=== PATIENT | male | born 2000 | race Caucasian/White ===

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

== ENCOUNTER 2019-01-03 11:10 | Day surgery (SDC) | payer OTHER ==
[~2019-01-03] VITALS: Ht 193 cm; Wt 74.8 kg
[~2019-01-03 11:10] MED LIST: AUGM875T28 PO; MAGICMW SSP; PRED20TA PO
[2019-01-03] MEDS ORDERED: ceFAZolin 1GM INJ (J0690 PER 500MG) As Ordered ONE (12:01)
[2019-01-03] MEDS ORDERED: LR 1,000 ML IV ONE (12:30)
[2019-01-03] MEDS ORDERED: ceFAZolin SOD 1 GM in D5W MINI-BAG PLUS 50 ML IV ONE (12:30)
[2019-01-03] MEDS ORDERED: LIDOCAINE 1% SDV INJ 30 ML VIAL As Ordered ONE (12:42)
[2019-01-03] MEDS ORDERED: fentaNYL 100 MCG/2 ML INJECTION (J3010) As Ordered ONE (13:39)
[2019-01-03] MEDS ORDERED: LIDOCAINE 2% INJ 100 MG/5 ML SDV (FOR ANES.) As Ordered ONE (13:39)
[2019-01-03] MEDS ORDERED: PROPOFOL 200 MG/20 ML VIAL As Ordered ONE (13:39)
[2019-01-03] MEDS ORDERED: MIDAZOLAM INJ 2 MG/2 ML VIAL (J2250) As Ordered ONE (13:39)
[2019-01-03] MEDS ORDERED: ONDANSETRON 4MG/2ML VIAL (J2405) As Ordered ONE (13:39)
[2019-01-03] MEDS ORDERED: LR 1,000 ML IV SCH (14:30)
[2019-01-03] MEDS ORDERED: ONDANSETRON 4MG/2ML VIAL (J2405) IV PRN (14:30)
[2019-01-03 14:45] VITALS: BP 123/74
--- NOTE | 2019-01-03 14:50 | RO ---
DATE OF OPERATION: 01/03/2019 PREOPERATIVE DIAGNOSIS: Unexplained syncope. POSTOPERATIVE DIAGNOSIS: Unexplained syncope. FINDINGS: Unexplained syncope. PROCEDURE PERFORMED: Implantation of a [employer]onic implantable loop recorder. SURGEON: Iglesia Cruz MD OPTICAL GLASS SAWYER: None. ANESTHESIA: Lidocaine 1% local (2 mL), monitored anesthetic care. SPECIMENS: None. ESTIMATED BLOOD LOSS: Less than 1 mL. BLOOD PRODUCTS REPLACED: None. DRAINS: None. COMPLICATIONS: None. DESCRIPTION OF PROCEDURE: The patient was prepped and draped over the sternum and left anterior chest. Lidocaine 1% was used for local anesthetic. An incision approximately 1 cm in length was made at roughly the left 4th interspace 1 inch lateral to the left parasternal border. This was made with a #15 blade. Next, the guide on the insertion tool was placed into the incision and advanced parallel to the ribcage in the subcuticular tissue in a caudal direction. The insertion tool was then rotated 180 degrees. The punch was then placed into the insertion tool and used to advance the loop recorder into the subcutaneous tissue. The punch was then removed, and then the insertion tool was removed leaving the loop recorder behind. The initial R wave amplitude was 0.70 mV. Next, a single 2-0 Vicryl stitch was used to approximate the deep layer of the incision. Next, I used a 4-0 Biosyn suture placed subcuticular with the free ends of the suture protruding from the skin 1 cm on either side. This was used to approximate the incision temporarily while the glue was allowed to set. Next, three layers of Dermabond were applied over the incision. The Biosyn suture was then snipped and removed entirely from the incision line by pulling it through. The patient tolerated the procedure well without any immediate complications. The implantable loop recorder implanted was a [employer] Reveal LINC, model LNQ11 with serial number [id number].
== END 2019-01-03 14:54 | disposition home or self-care (01) ==
LOC: M SDC 11:10
PROVIDERS: ATTEND Internal Medicine Cardiovascular Disease
DX: R55 Syncope and collapse (principal); F17.290 Nicotine dependence, other tobacco product, uncomplicated
CPT/HCPCS: 33285; C1764; J0690; J2250; J2405; J3010

== ENCOUNTER 2019-01-13 09:15 | Day surgery (SDC) | payer OTHER ==
[~2019-01-13] VITALS: Ht 193 cm; Wt 79.4 kg
[2019-01-13] MEDS ORDERED: LR 1,000 ML IV ONE (09:30)
[2019-01-13] MEDS ORDERED: dexameTHASONE 4 MG/ML 1ML VIAL (J1100) IV ONE (10:00)
[2019-01-13] MEDS ORDERED: LIDOCAINE 2% INJ 100 MG/5 ML SDV (FOR ANES.) As Ordered ONE (10:51)
[2019-01-13] MEDS ORDERED: PROPOFOL 200 MG/20 ML VIAL As Ordered ONE (10:51)
[2019-01-13] MEDS ORDERED: dexameTHASONE 4 MG/ML 1ML VIAL (J1100) As Ordered ONE (10:52)
[2019-01-13] MEDS ORDERED: SUCCINYLCHOLINE 100 MG/5 ML SYRINGE (J0330) As Ordered ONE (10:52)
[2019-01-13] MEDS ORDERED: ONDANSETRON 4MG/2ML VIAL (J2405) As Ordered ONE (10:52)
[2019-01-13] MEDS ORDERED: MIDAZOLAM INJ 2 MG/2 ML VIAL (J2250) As Ordered ONE (10:52)
[2019-01-13] MEDS ORDERED: ROCURONIUM BROMIDE 50 MG/5 ML VIAL As Ordered ONE (10:52)
[2019-01-13] MEDS ORDERED: fentaNYL 100 MCG/2 ML INJECTION (J3010) As Ordered ONE ×2 (10:53→13:07)
[2019-01-13] MEDS ORDERED: ESMOLOL INJ 100MG/10ML VIAL As Ordered ONE (12:22)
[2019-01-13] MEDS: fentaNYL 100 MCG/2 ML INJECTION (J3010) IV PRN ×4 (13:10→13:25)
[2019-01-13] MEDS ORDERED: MEPERIDINE INJ 25 MG/ML VIAL (J2175) IV PRN (13:15)
[2019-01-13] MEDS ORDERED: ONDANSETRON 4MG/2ML VIAL (J2405) IV PRN (13:15)
[2019-01-13] MEDS ORDERED: METOCLOPRAMIDE INJ 10MG/2ML VIAL (J2765) IV PRN (13:15)
[2019-01-13] MEDS ORDERED: PERCOCET 5MG/325MG TAB PO PRN (13:15)
[2019-01-13] MEDS ORDERED: LR 1,000 ML IV SCH ×2 (13:15)
[2019-01-13 13:53] VITALS: BP 128/80
== END 2019-01-13 15:08 | disposition home or self-care (01) ==
LOC: M SDC 09:15
PROVIDERS: ATTEND Otolaryngology
DX: J35.01 Chronic tonsillitis (principal); F17.290 Nicotine dependence, other tobacco product, uncomplicated
CPT/HCPCS: 42826; 88302; J0330; J1100; J2250; J2405; J3010

== ENCOUNTER 2019-01-20 16:17 | Emergency (ER) | payer OTHER ==
[~2019-01-20] VITALS: Ht 193 cm; Wt 80.0 kg
[2019-01-20 16:52] LABS: BASO % 0.4 % (0.0-1.0); EOS # 0.1 10^3/uL (0.0-0.5); EOS % 0.6 % (0.0-3.0); HEMATOCRIT 47.7 % (42.0-52.0); HEMOGLOBIN 16.2 g/dl (13.5-17.5); LYMPH # 1.9 10^3/uL (1.5-5.0); LYMPH % 22.3 % (24.0-44.0); MEAN CORPUSCULAR VOLUME 85.3 fl (80.0-96.0); MONO # 0.8 10^3/uL (0.0-0.8); NEUTROPHILS # 5.6 10^3/uL (1.5-8.5); NEUTROPHILS % 66.3 % (36.0-66.0); PLATELET COUNT, AUTOMATED 284 10^3/uL (150-450); RED BLOOD COUNT 5.59 10^6/uL (4.30-6.10); WHITE BLOOD COUNT 8.4 10^3/uL (4.0-10.0)
--- NOTE | 2019-01-20 17:04 | REP ---
Clinical: Chest pain . Comparison: None . Findings: The mediastinum and cardiac silhouette are stable and within normal limits for portable technique. The lung hernandez are clear without acute consolidation, effusion, or pneumothorax. Skeletal structures are intact. Impression: No acute cardiopulmonary process appreciated. Electronically Signed by Marcus Pro MD 01/20/2019 04:56 P
[2019-01-20 17:23] LABS: BLOOD UREA NITROGEN 12 MG/DL (7-18); CALCIUM LEVEL 9.3 MG/DL (8.5-10.1); CARBON DIOXIDE LEVEL 27 MEQ/L (21-32); CHLORIDE LEVEL 107 MEQ/L (98-107); CK-MB VALUE MASS < 1.0 NG/ML (<3.6); CPK CREATINE PHOSPHOKINASE 36 U/L (39-308); GLUCOSE, FASTING 92 MG/DL (70-100); MB/CK RELATIVE INDEX 2.78 (< OR =4); POTASSIUM SERUM 4.2 MEQ/L (3.5-5.1); SODIUM LEVEL 140 MEQ/L (136-145); TROPONIN I < 0.02 NG/ML (< 0.10)
[2019-01-20 19:00] VITALS: BP 113/64
--- NOTE | 2019-01-21 07:13 | ECGEPIP ---
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
== END 2019-01-20 19:24 | disposition home or self-care (01) ==
LOC: M ED 16:17 → EDBD 16:17 → M ED 19:24
DX: R55 Syncope and collapse (principal); I71.9 Aortic aneurysm of unspecified site, without rupture; F17.200 Nicotine dependence, unspecified, uncomplicated; Z96.9 Presence of functional implant, unspecified

== ENCOUNTER 2019-03-22 15:28 | Emergency (ER) | payer OTHER ==
[~2019-03-22] VITALS: Ht 193 cm; Wt 79.1 kg
[2019-03-22 15:28] VITALS: BP 138/80
--- NOTE | 2019-03-22 16:15 | REP ---
Portable chest x-ray: Single view. History: Chest pain. Comparison chest x-ray: January 20, 2019. Findings: Monitoring electrodes are seen. A loop recorder is again visible superimposed on the heart. The heart is not enlarged. Lungs are well inflated and clear. Pleural angles are sharp. Pulmonary vasculature is not increased. Impression: There is a loop recorder visible overlying the left heart. Otherwise negative portable chest x-ray. Electronically Signed by David Raman MD 03/22/2019 04:06 P
[2019-03-22 16:22] LABS: BASO % 0.3 % (0.0-1.0); EOS # 0.1 10^3/uL (0.0-0.5); EOS % 0.7 % (0.0-3.0); HEMOGLOBIN 15.1 g/dl (13.5-17.5); LYMPH # 2.4 10^3/uL (1.5-5.0); LYMPH % 25.5 % (24.0-44.0); MEAN CORPUSCULAR HEMOGLOBIN 29.5 pg (27.0-33.0); MEAN CORPUSCULAR HGB CONC 32.8 g/dl (32.0-36.5); MEAN CORPUSCULAR VOLUME 89.8 fl (80.0-96.0); MONO # 0.8 10^3/uL (0.0-0.8); MONO % 8.1 % (0.0-5.0); NEUTROPHILS # 6.1 10^3/uL (1.5-8.5); NEUTROPHILS % 64.8 % (36.0-66.0); PLATELET COUNT, AUTOMATED 284 10^3/uL (150-450); RED BLOOD COUNT 5.12 10^6/uL (4.30-6.10); WHITE BLOOD COUNT 9.4 10^3/uL (4.0-10.0)
[2019-03-22 16:34] LABS: INR 1.11
[2019-03-22 16:35] LABS: PARTIAL THROMBOPLASTIN TIME 32.3 SECONDS (25.0-38.4)
[2019-03-22 16:43] LABS: BLOOD UREA NITROGEN 12 MG/DL (7-18); CALCIUM LEVEL 9.1 MG/DL (8.5-10.1); CARBON DIOXIDE LEVEL 29 MEQ/L (21-32); CHLORIDE LEVEL 108 MEQ/L (98-107); CK-MB VALUE MASS 1.3 NG/ML (<3.6); CPK CREATINE PHOSPHOKINASE 121 U/L (39-308); CREATININE FOR GFR 0.95 MG/DL (0.70-1.30); GLUCOSE, FASTING 87 MG/DL (70-100); MB/CK RELATIVE INDEX 1.07 (< OR =4); POTASSIUM SERUM 3.7 MEQ/L (3.5-5.1); SODIUM LEVEL 142 MEQ/L (136-145); TROPONIN I < 0.02 NG/ML (< 0.10)
[2019-03-22] MEDS ORDERED: ISOVUE-370 76% 100ML VIAL (Q9967) As Ordered ONE (16:48)
--- NOTE | 2019-03-22 17:44 | REPVR ---
PROCEDURE INFORMATION: Exam: CT Angiography Chest With Contrast Exam date and time: 03/22/2019 4:59 PM Clinical history: 18 years old, male; Chest pain; Additional info: Chest pain, recent travel TECHNIQUE: Imaging protocol: Computed tomographic angiography of the chest with intravenous contrast. 3D rendering: MIP reconstructed images were created and reviewed. Radiation optimization: All CT scans at this facility use at least one of these dose optimization techniques: automated exposure control; mA and/or kV adjustment per patient size (includes targeted exams where dose is matched to clinical indication); or iterative reconstruction. Contrast material: Isovue 370; Contrast volume: 100 ml; Contrast route: IV; COMPARISON: CR PORTABLE CHEST X-RAY 03/22/2019 3:56 PM FINDINGS: Pulmonary arteries: Normal. No pulmonary emboli. Aorta: Prominent aortic root measuring 4.3 cm. no evidence of periaortic/aortic mural inflammation. Thyroid: The partially imaged bilateral thyroid lobes are unremarkable. Lungs: Unremarkable. No consolidation. No masses. Pleural space: Unremarkable. No pneumothorax. No pleural effusion. Heart: Unremarkable. No cardiomegaly. No pericardial effusion. Lymph nodes: Triangular subpleural lymph node RIGHT middle lobe LEFT major fissure (series 404, image 20). Bones/joints: Unremarkable. No acute fracture. Soft tissues: Unremarkable. IMPRESSION: 1. Aortic root ectasia. Consider Marfan, Shelli-Danlos, Loeys-Pema syndromes, and other etiologies. 2. No thoracic aortic dissection identified. 3. No pulmonary embolism identified. Electronically signed by: Clay Chadwick On 03/22/2019 17:44:12 PM
[2019-03-22] MEDS ORDERED: KETOROLAC 30 MG/ML VIAL (J1885) IV ONE (18:30)
--- NOTE | 2019-03-23 05:43 | ECGEPIP ---
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
--- NOTE | 2019-03-23 10:33 | ED PDOC ---
Post-Departure Follow-Up radiology report faxed to [facility] Joycelyn Jerry MD Mar 23, 2019 10:33
== END 2019-03-22 18:53 | disposition home or self-care (01) ==
LOC: M ED 15:28
DX: R07.89 Other chest pain (principal); I71.4 Abdominal aortic aneurysm, without rupture
CPT/HCPCS: 71045; 71275; 80048; 82550; 82553; 84484; 85025; 85610; 85730; 93005; 93041; 94760; 96374; 99284; J1885; Q9967

== ENCOUNTER 2019-04-23 17:10 | Emergency (ER) | payer OTHER ==
[~2019-04-23] VITALS: Ht 193 cm; Wt 54.5 kg
[2019-04-23] MEDS ORDERED: ISOVUE-370 76% 100ML VIAL (Q9967) As Ordered ONE (17:28)
[2019-04-23 17:37] LABS: HEMATOCRIT 49.2 % (42.0-52.0); HEMOGLOBIN 15.6 g/dl (13.5-17.5); MEAN CORPUSCULAR HEMOGLOBIN 28.3 pg (27.0-33.0); MEAN CORPUSCULAR HGB CONC 31.7 g/dl (32.0-36.5); MEAN CORPUSCULAR VOLUME 89.1 fl (80.0-96.0); PLATELET COUNT, AUTOMATED 354 10^3/uL (150-450); RED BLOOD COUNT 5.52 10^6/uL (4.30-6.10); WHITE BLOOD COUNT 12.9 10^3/uL (4.0-10.0)
[2019-04-23 17:49] LABS: INR 1.1; PROTHROMBIN TIME 13.9 SECONDS (11.8-14.0)
[2019-04-23] MEDS ORDERED: LORazepam 2 MG/ML VIAL (J2060) IV STA (17:50)
[2019-04-23 18:03] LABS: BLOOD UREA NITROGEN 8 MG/DL (7-18); CARBON DIOXIDE LEVEL 25 MEQ/L (21-32); CHLORIDE LEVEL 107 MEQ/L (98-107); CREATININE FOR GFR 0.85 MG/DL (0.70-1.30); GLUCOSE, FASTING 94 MG/DL (70-100); POTASSIUM SERUM 3.7 MEQ/L (3.5-5.1); SODIUM LEVEL 141 MEQ/L (136-145)
[2019-04-23 18:28] LABS: ETHYL ALCOHOL (ETHANOL) 0.126 % (0.000-0.010)
[2019-04-23 18:43] LABS: CK-MB VALUE MASS < 1.0 NG/ML (<3.6); CPK CREATINE PHOSPHOKINASE 108 U/L (39-308); MB/CK RELATIVE INDEX 0.93 (< OR =4); TROPONIN I < 0.02 NG/ML (< 0.10)
--- NOTE | 2019-04-23 18:45 | REPVR ---
PROCEDURE INFORMATION: Exam: CT Angiography Chest With Contrast Exam date and time: 04/23/2019 5:33 PM Age: 18 years old Clinical history: Chest pain; Type not specified; Additional info: Cp R/O pe TECHNIQUE: Imaging protocol: Computed tomographic angiography of the chest with intravenous contrast. 3D rendering: MIP reconstructed images were created and reviewed. Radiation optimization: All CT scans at this facility use at least one of these dose optimization techniques: automated exposure control; mA and/or kV adjustment per patient size (includes targeted exams where dose is matched to clinical indication); or iterative reconstruction. Contrast material: [id number]; Contrast volume: 75 ml; Contrast route: IV; COMPARISON: CT ANGIO CHEST 03/22/2019 4:56 PM FINDINGS: Pulmonary arteries: Normal. No pulmonary emboli. Aorta: Redemonstration of ectasia of the aortic root, similar to prior exam. Aortic root measures approximately 4.3 cm x 4.1 cm. Lungs: Noncalcified nodular opacity along the right major fissure, measuring 7 mm x 3 mm. This likely represents a tiny focal scar or subpleural lymph node. This is unchanged. Pleural space: Unremarkable. No pneumothorax. No pleural effusion. Heart: Unremarkable. No cardiomegaly. No pericardial effusion. Lymph nodes: No lymphadenopathy. Bones/joints: Unremarkable. No acute fracture. Soft tissues: Unremarkable. IMPRESSION: 1. No evidence of pulmonary embolism. 2. Redemonstration of aortic root ectasia. Electronically signed by: Marielle Uribe On 04/23/2019 18:45:20 PM
[2019-04-23 19:00] VITALS: BP 135/74
--- NOTE | 2019-04-25 16:39 | ECGEPIP ---
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
== END 2019-04-23 19:23 | disposition home or self-care (01) ==
LOC: M ED 17:10
DX: I71.9 Aortic aneurysm of unspecified site, without rupture (principal); F10.229 Alcohol dependence with intoxication, unspecified; Y90.0 Blood alcohol level of less than 20 mg/100 ml
CPT/HCPCS: 12013; 71275; 80048; 82550; 82553; 84484; 85027; 85610; 93005; 96374; 99284; G0480; J2060; Q9967

== ENCOUNTER 2019-07-06 18:05 | Inpatient (IN) | payer OTHER ==
[~2019-07-06] VITALS: Ht 193 cm; Wt 79.0 kg
[2019-07-06] MEDS ORDERED: PROP40TA62 PO (18:14)
[2019-07-06 18:27] LABS: BASO % 0.4 % (0.0-1.0); EOS # 0.1 10^3/uL (0.0-0.5); EOS % 0.8 % (0.0-3.0); HEMATOCRIT 48.6 % (42.0-52.0); HEMOGLOBIN 16.3 g/dl (13.5-17.5); LYMPH # 2.9 10^3/uL (1.5-5.0); LYMPH % 29.1 % (24.0-44.0); MEAN CORPUSCULAR HEMOGLOBIN 29.3 pg (27.0-33.0); MEAN CORPUSCULAR HGB CONC 33.5 g/dl (32.0-36.5); MEAN CORPUSCULAR VOLUME 87.4 fl (80.0-96.0); MONO # 1.1 10^3/uL (0.0-0.8); MONO % 10.9 % (0.0-5.0); NEUTROPHILS # 5.8 10^3/uL (1.5-8.5); NEUTROPHILS % 58.4 % (36.0-66.0); PLATELET COUNT, AUTOMATED 297 10^3/uL (150-450); RED BLOOD COUNT 5.56 10^6/uL (4.30-6.10); WHITE BLOOD COUNT 9.9 10^3/uL (4.0-10.0)
--- NOTE | 2019-07-06 18:42 | REPVR ---
PROCEDURE INFORMATION: Exam: CT Head Without Contrast Exam date and time: 07/06/2019 6:22 PM Age: 18 years old Clinical indication: Altered mental status/memory loss TECHNIQUE: Imaging protocol: Computed tomography of the head without contrast. Radiation optimization: All CT scans at this facility use at least one of these dose optimization techniques: automated exposure control; mA and/or kV adjustment per patient size (includes targeted exams where dose is matched to clinical indication); or iterative reconstruction. COMPARISON: No relevant prior studies available. FINDINGS: Brain: Normal. No hemorrhage. Unremarkable white matter. No mass effect. Ventricles: Normal. No ventriculomegaly. Bones/joints: Unremarkable. No acute fracture. Sinuses: Visualized sinuses are unremarkable. No fluid levels. Mastoid air cells: Visualized mastoid air cells are well aerated. Soft tissues: Unremarkable. Lymph nodes: Prominent adenoidal soft tissues consistent with adenopathy. IMPRESSION: No acute intracranial findings. Electronically signed by: Walt Carranza On 07/06/2019 18:42:42 PM
[2019-07-06] MEDS ORDERED: ISOVUE-370 76% 100ML VIAL (Q9967) As Ordered ONE (18:49)
[2019-07-06 19:01] LABS: ACETAMINOPHEN LEVEL < 2.0 UG/ML (10.0-30.0); ALBUMIN 4.5 GM/DL (3.2-5.2); ALT/SGPT 32 U/L (12-78); BILIRUBIN,DIRECT 0.2 MG/DL (0.0-0.2); BILIRUBIN,TOTAL 0.9 MG/DL (0.2-1.0); BLOOD UREA NITROGEN 11 MG/DL (7-18); CALCIUM LEVEL 9.1 MG/DL (8.5-10.1); CARBON DIOXIDE LEVEL 29 MEQ/L (21-32); CHLORIDE LEVEL 106 MEQ/L (98-107); CK-MB VALUE MASS < 1.0 NG/ML (<3.6); CPK CREATINE PHOSPHOKINASE 130 U/L (39-308); CREATININE FOR GFR 1.07 MG/DL (0.70-1.30); ETHYL ALCOHOL (ETHANOL) < 0.003 % (0.000-0.010); GLUCOSE, FASTING 97 MG/DL (70-100); MB/CK RELATIVE INDEX 0.77 (< OR =4); POTASSIUM SERUM 4.1 MEQ/L (3.5-5.1); SALICYLATE LEVEL < 1.7 MG/DL (5.0-30.0); SODIUM LEVEL 139 MEQ/L (136-145); TOTAL PROTEIN 7.8 GM/DL (6.4-8.2); TROPONIN I < 0.02 NG/ML (< 0.10)
--- NOTE | 2019-07-06 19:19 | REPVR ---
PROCEDURE INFORMATION: Exam: CT Angiography Abdomen With Contrast Exam date and time: 07/06/2019 6:55 PM Age: 18 years old Clinical indication: Abdominal pain; Generalized; Additional info: R/O dissection/aneurysm TECHNIQUE: Imaging protocol: Computed tomographic angiography images of the abdomen with intravenous contrast material. 3D rendering: MIP and/or 3D reconstructed images were created by the technologist. Radiation optimization: All CT scans at this facility use at least one of these dose optimization techniques: automated exposure control; mA and/or kV adjustment per patient size (includes targeted exams where dose is matched to clinical indication); or iterative reconstruction. Contrast material: ISOVUE 370; Contrast volume: 100 ml; Contrast route: IV; COMPARISON: CT ANGIO CHEST 04/23/2019 5:31 PM FINDINGS: Aorta: There is an indentation and sharp angulation at the superior margin of the celiac artery shortly after its takeoff from the aorta consistent with a prominent median arcuate ligament. Celiac trunk and mesenteric arteries: No occlusion or significant stenosis. Renal arteries: No occlusion or significant stenosis. Liver: There is a diffuse decrease in hepatic parenchymal density, consistent with steatosis. Gallbladder and bile ducts: The gallbladder is incompletely distended. This is most likely related to incomplete fasting. Clinical correlation to exclude gallbladder pathology suggested. Pancreas: Normal. No ductal dilation. Spleen: Normal. No splenomegaly. Adrenals: Normal. No mass. Kidneys and ureters: Normal. No hydronephrosis. Stomach and bowel: There is increased feces throughout the colon consistent with constipation. Lymph nodes: Unremarkable. No enlarged lymph nodes. Intraperitoneal space: Unremarkable. No free air. No significant fluid collection. Bones/joints: Unremarkable. No acute fracture. No dislocation. Soft tissues: Unremarkable. IMPRESSION: 1. The gallbladder is incompletely distended. This is most likely related to incomplete fasting. Clinical correlation to exclude gallbladder pathology suggested. 2. There is a diffuse decrease in hepatic parenchymal density, consistent with steatosis. 3. There is an indentation and sharp angulation at the superior margin of the celiac artery shortly after its takeoff from the aorta consistent with a prominent median arcuate ligament. 4. There is increased feces throughout the colon consistent with constipation. Electronically signed by: Walt Carranza On 07/06/2019 19:19:21 PM
--- NOTE | 2019-07-06 19:26 | REPVR ---
PROCEDURE INFORMATION: Exam: CT Angiography Chest With Contrast Exam date and time: 07/06/2019 6:55 PM Age: 18 years old Clinical indication: Chest pain; Type not specified; Additional info: R/O dissection/aneurysm TECHNIQUE: Imaging protocol: Computed tomographic angiography of the chest with intravenous contrast. 3D rendering: MIP and/or 3D reconstructed images were created by the technologist. Radiation optimization: All CT scans at this facility use at least one of these dose optimization techniques: automated exposure control; mA and/or kV adjustment per patient size (includes targeted exams where dose is matched to clinical indication); or iterative reconstruction. Contrast material: ISOVUE 370; Contrast volume: 100 ml; Contrast route: IV; COMPARISON: CT ANGIO CHEST 04/23/2019 5:31 PM FINDINGS: Pulmonary arteries: There are no pulmonary emboli. Aorta: Dilated aortic root at the mid sinuses of Valsalva level measures 4.1 cm, stable in comparison to the prior study. Clinical correlation to excess for aortic insufficiency suggested. Clinical correlation to exclude Marfan syndrome suggested. Lungs: 4 x 6 mm noncalcified nodule in the right lower lobe adjacent to the major fissure. Finding is stable in comparison to 04/23/2019. Pleural space: Unremarkable. No pneumothorax. No pleural effusion. Heart: The heart is unremarkable without dilatation of the left ventricle. Lymph nodes: Unremarkable. No enlarged lymph nodes. Bones/joints: Unremarkable. No acute fracture. Soft tissues: Unremarkable. IMPRESSION: 1. 4 x 6 mm noncalcified nodule in the right lower lobe adjacent to the major fissure. Finding is stable in comparison to 04/23/2019. If patient does not have known cancer, follow up should be based on clinical information because of the low risk of cancer in this age group. (Adri et al., Fleischner Society, 2017) 2. Dilated aortic root at the mid sinuses of Valsalva level measures 4.1 cm, stable in comparison to the prior study. Clinical correlation to excess for aortic insufficiency suggested. Clinical correlation to exclude Marfan syndrome suggested. 3. There are no pulmonary emboli. 4. No acute pulmonary parenchymal findings. Electronically signed by: Walt Carranza On 07/06/2019 19:26:46 PM
--- NOTE | 2019-07-06 19:29 | REP ---
Clinical: Altered mental status . Comparison: 03/22/2019 . Findings: The mediastinum and cardiac silhouette are stable and within normal limits for portable technique. The lung hernandez are clear without acute consolidation, effusion, or pneumothorax. Skeletal structures are intact. Impression: No acute cardiopulmonary process appreciated. Electronically Signed by Marcus Pro MD 07/06/2019 07:21 P
[2019-07-06 19:44] LABS: AMPHETAMINES LEVEL URINE NEGATIVE (NEGATIVE); BARBITURATES URINE NEGATIVE (NEGATIVE); BENZODIAZEPINES URINE NEGATIVE (NEGATIVE); CANNABINOIDS URINE NEGATIVE (NEGATIVE); COCAINE METABOLITE URINE NEGATIVE (NEGATIVE); METHADONE URINE NEGATIVE (NEGATIVE); OPIATES URINE NEGATIVE (NEGATIVE); PHENCYCLIDINE URINE NEGATIVE (NEGATIVE)
--- NOTE | 2019-07-06 20:48 | ECGEPIP ---
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
[2019-07-06 21:03] LABS: C REACTIVE PROTEIN QUANTITATIV < 0.30 MG/DL (0.00-0.30)
[2019-07-06 21:16] LABS: ERYTHROCYTE SEDIMENTATION RATE 2 mm/hr (0-15)
--- NOTE | 2019-07-06 21:59 | REPVR ---
PROCEDURE INFORMATION: Exam: MR Head Without Contrast Exam date and time: 07/06/2019 9:47 PM Age: 18 years old Clinical indication: Weakness, extremity; Patient HX: Syncopal episode with loss of bilateral leg feeling and use and also arm feeling and use. ; Additional info: CVA TECHNIQUE: Imaging protocol: MR of the head without contrast. COMPARISON: CT Head without contrast 07/06/2019 6:20 PM FINDINGS: Brain: Normal. No acute infarct. No hemorrhage. No significant white matter disease. No edema. Ventricles: Normal. No ventriculomegaly. Bones/joints: Unremarkable. Soft tissues: Unremarkable. Sinuses: Normal as visualized. No acute sinusitis. Mastoid air cells: Normal as visualized. No mastoid effusion. Orbits: Unremarkable. IMPRESSION: No acute findings. Electronically signed by: Walt Carranza On 07/06/2019 21:59:08 PM
--- NOTE | 2019-07-06 22:02 | REPVR ---
PROCEDURE INFORMATION: Exam: MR Angiogram Head Without Contrast, Arteries Exam date and time: 07/06/2019 9:47 PM Age: 18 years old Clinical indication: Numbness and weakness; Patient HX: Syncopal episode with loss of bilateral leg feeling and use and also arm feeling and use. ; Additional info: Weakness all ext eval for aneurysm TECHNIQUE: Imaging protocol: MR angiogram head without contrast. Exam focused on the arteries. 3D rendering: MIP and/or 3D reconstructed images were created by the technologist. COMPARISON: CT Head without contrast 07/06/2019 6:20 PM FINDINGS: Right internal carotid artery: Unremarkable. Intracranial segment is patent with no significant stenosis. No aneurysm. Right anterior cerebral artery: Hypoplastic right A1 segment. Right middle cerebral artery: Unremarkable. No occlusion or significant stenosis. No aneurysm. Right posterior cerebral artery: Unremarkable. No occlusion or significant stenosis. No aneurysm. Right vertebral artery: Unremarkable. No occlusion or significant stenosis. No aneurysm. Left internal carotid artery: Unremarkable. Intracranial segment is patent with no significant stenosis. No aneurysm. Left anterior cerebral artery: Unremarkable. No occlusion or significant stenosis. No aneurysm. Left middle cerebral artery: Unremarkable. No occlusion or significant stenosis. No aneurysm. Left posterior cerebral artery: Unremarkable. No occlusion or significant stenosis. No aneurysm. Left vertebral artery: Unremarkable. No occlusion or significant stenosis. No aneurysm. Basilar artery: Unremarkable. No occlusion or significant stenosis. No aneurysm. IMPRESSION: 1. Hypoplastic right A1 segment. 2. Otherwise unremarkable. Electronically signed by: Walt Carranza On 07/06/2019 22:01:58 PM
--- NOTE | 2019-07-06 22:04 | REPVR ---
PROCEDURE INFORMATION: Exam: MR Cervical Spine Without Contrast Exam date and time: 07/06/2019 9:47 PM Age: 18 years old Clinical indication: Numbness and weakness; Patient HX: Syncopal episde with loss of bilateral leg feeling and use and also arm feeling and use. ; Additional info: CVA TECHNIQUE: Imaging protocol: Multiplanar magnetic resonance images of the cervical spine without contrast. COMPARISON: No relevant prior studies available. FINDINGS: Vertebrae: Unremarkable. Spinal cord: Normal signal. No cord compression. C2-C3: No significant disc disease. No significant spinal stenosis. C3-C4: No significant disc disease. No significant spinal stenosis. C4-C5: No significant disc disease. No significant spinal stenosis. C5-C6: No significant disc disease. No significant spinal stenosis. C6-C7: No significant disc disease. No significant spinal stenosis. C7-T1: No significant disc disease. No significant spinal stenosis. Vertebral arteries: Expected flow voids in the vertebral arteries. Soft tissues: Unremarkable. IMPRESSION: Unremarkable spine. Electronically signed by: Walt Carranza On 07/06/2019 22:04:06 PM
[2019-07-06 22:25] LABS: CHOLESTEROL LEVEL 118 MG/DL (<200); CHOLESTEROL RISK RATIO 3.687 (<5); HDL CHOLESTEROL 32 MG/DL (>40); LDL CHOLESTEROL 59 MG/DL (<100); NON-HDL-C 86 MG/DL; TRIGLYCERIDES LEVEL 134 MG/DL (<150)
[2019-07-07] MEDS ORDERED: ENOXAPARIN 40 MG/0.4 ML SYRINGE (J1650) SC SCH (06:00)
[2019-07-07 06:50] VITALS: BP 113/65
[2019-07-07 07:31] LABS: FREE T4 0.9 NG/DL (0.78-1.33); THYROID STIMULATING HORMONE 2.12 uIU/ML (0.463-3.98)
--- NOTE | 2019-07-07 07:40 | HPE ---
DATE OF ADMISSION: 07/06/2019 CHIEF COMPLAINT: Altered mental status with a syncopal episode. HISTORY OF PRESENT ILLNESS: The patient is a 18-year-old male with really no medical history who was brought in by a coworker after being found lethargic and minimally responsive. The history is partially obtained by the patient's superior officer, the on-site medic, and PA assigned to his unit. 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 Today, the patient was last seen at 4 p.m. being normal. He was then found at 5:40 p.m. by a coworker who stated to the onset medic that the patient was lethargic. After he was transferred into the vehicle to bring him to the emergency department, he became unresponsive on route. When he arrived to the emergency department, he was put into a critical bed and woke up only after ammonia was applied to his nostrils. Fingerstick blood sugar at that time was 86. When he awoke, he had numbness and tingling in the finger in a stocking and glove pattern, and the inability to move his arms or his legs. The emergency department physician also reported the patient has decreased sensation. He does follow with Dr. Cruz for the previous syncopal episodes. He had a loop recorder implanted in December which has been unrevealing so far. Echocardiogram was pretty much normal except for a dilated aortic root, which is stable at 4.1 cm. The patient is originally from [place], and has been to multiple states, though none recently. 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 He currently denies any runny nose, stuffy nose or myalgias. He denies any fevers or chills. Since being in the emergency department, he has regained some sensation as well as motor strength. PAST MEDICAL HISTORY: Syncope with an extensive workup done by Dr. Cruz. Tobacco dependence, currently smoke and vapes, the equivalent of at least two packs per day. HOME MEDICATIONS: Propranolol 40 mg by mouth twice a day. ALLERGIES: None. VACCINATIONS: Up-to-date. PAST SURGICAL HISTORY: Loop recorder implanted by Dr. Cruz December 2018 ([employer] reveal LINC, model #LNQ11). Tonsillectomy done 01/14/[address] Gene Collins. FAMILY HISTORY: Denies any family history of rheumatologic disease, cancer, diabetes, hypertension. SOCIAL HISTORY: Originally from [place] but has traveled to multiple states include [place] for basic training, [place] where he has been cave diving, and [place] and [place]. 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 He does have minimal alcohol consumption on weekends. He denies any illicit drugs. He does smoke and vapes, to the equivalent of two packs per day, and has been smoking for some time. He has four dogs at his parents' house, denies any pets or recent travel. REVIEW OF SYSTEMS: CONSTITUTIONAL: Denies any fevers, chills, night sweats or weight changes. HEENT: Denies any visual changes, headaches, double vision or feeling like a curtain got pulled down. Denies any runny nose, epistaxis, sinus pain, tinnitus, gingival bleeding, toothache or sore throat or odynophagia. CARDIOVASCULAR: Denies any new chest pain, shortness of breath, paroxysmal nocturnal dyspnea, orthopnea, edema or palpitations. Does have a history of unexplained syncope. RESPIRATORY: Denies any cough, sputum production wheezes, hemoptysis or shortness of breath GASTROINTESTINAL: No intestinal: Denies any abdominal pain, unintentional weight loss, difficulty swallowing, nausea, vomiting, diarrhea, constipation, obstipation, hematemesis, hematochezia, melena or tenesmus. GENITOURINARY: Denies any incontinence, dysuria, hematuria, nocturia, polyuria, hesitancy or dribbling. MUSCULOSKELETAL: Positive for muscle weakness as described above has progressively gotten better since his arrival to the emergency department. Denies any joint swelling, decreased range of motion or crepitus. INTEGUMENTARY: Denies any new rashes, lesions, pruritus stria or wounds. NEURO: Denies any changes to sight/smell/hearing/taste, history of seizures, or headaches. Positive for paresthesias in a stocking-glove pattern upon waking up in the emergency department as well as bilateral lower extremity and core weakness with reconstitution of his upper extremity distal muscle strength since arriving in the emergency department. PSYCHIATRIC: Denies any depression, anxiety, paranoia, anhedonia or episodes of claudia. ENDOCRINE: Denies any sweatiness, diarrhea, mood swings, palpitations, tremors or visual disturbances. Denies polydipsia, polyuria, polyphagia, constipation or dry skin HEMATOLOGIC: Denies any easy bruising or bleeding, denies anemia, purpura or petechiae. LYMPHATIC: Denies any new lumps or bumps anywhere. PHYSICAL EXAMINATION: VITALS: Temperature 98.4, pulse is 67 beats per minute and regular, respiratory rate is 20 and unlabored, blood pressure is 122/72, pulse oximetry is 100% on room air. GENERAL: This is a well-nourished, well-appearing young adult male in no acute distress. He is pleasant and cooperative, making jokes at the bedside. HEENT: Atraumatic, normocephalic. Extraocular eye movements are intact and pupils are equal, round and reactive to light. Mucous membranes are moist and he had his own teeth, though there are multiple areas of tobacco staining. There is no facial droop. There is no lid lag. There are no fasciculations noted. NECK: Supple, no masses, no thyromegaly. No jugular venous distention (JVD). CHEST: Symmetric expansion. No wheezes, rhonchi or rales. Clear to auscultation bilaterally. No pectus excavatum noted. HEART: Regular rate and rhythm. No murmurs, gallops or rubs. ABDOMEN: Normoactive bowel sounds, soft, nontender. No masses to palpation. EXTREMITIES: No deformities are noted. No bilateral lower extremity edema is noted. SKIN: Multiple freckles however, no rashes, lesions, erythema. PSYCH: Mood is appropriate affect is full. NEURO: Cranial nerves II-XII are grossly intact. Sensation is intact bilaterally, able to discriminate between sharp and dull cerebellar testing: Unable to do [id number] due to muscle weakness. [id number] intact and he is able to do alternating hand movements without difficulty. Muscle strength is 5/5 in the upper extremities bilaterally, he does have weakness in the bilateral hip flexors, 2/5 muscle strength bilaterally. He has 4/5 muscle strength for dorsiflexion of the feet and 4/5 muscle strength for plantar flexion of the feet bilaterally and 1/5 muscle strength for dorsiflexion bilaterally. Reflexes were asymmetric: Patellar reflexes in the right was 2+, patellar reflex in the left was 1+. Achilles reflex was 2+ on the left and 1+, triceps reflexes were 1-2+ bilaterally and brachial radialis reflexes were 2+ on the left and 1+ on the right. No pronator drift. He was barely able to lift his legs off the stretcher more than1 or 2 inches. LABORATORY DATA: CBC: WBC 9.9, hemoglobin 16.3, hematocrit 48.6, platelets 297; differential shows 58% neutrophils 29% lymphocytes. Chemistry: Electrolytes are in balance with a sodium of 139, potassium 4.1, chloride 106, carbon dioxide 29. Renal function is okay with a creatinine of 1.07 and a BUN of 11. Fasting glucose 97. Calcium 9.1, total bilirubin 0.9, direct bilirubin 0.2, AST 17, ALT 32, alkaline phosphatase 111, ammonia is 26. Cardiac enzymes were negative with a total creatinine kinase of 130, CK-MB less than 1.0 and troponin less than 0.02. CRP is not elevated at less than 0.30. Total protein 7.8, albumin 4.9. Cholesterol levels were normal with a mildly low HDL at 32, normal triglycerides 134 and normal LDL at 59. TSH was normal at 1.41. Urinalysis: Clear and straw-colored with a pH of 7.0 and specific gravity of 1.01, negative for protein, glucose, ketones, blood, nitrites, leukocyte esterase. Urine tox: Negative. Ethyl alcohol was less than 0.003. IMAGING STUDIES: Head CT done 07/06/2019 showed a normal brain without hemorrhage unremarkable white matter. Normal ventricles. Normal bones and joints. Normal sinuses and no acute intracranial findings. Chest x-ray done 07/06/2019 showed no acute cardiopulmonary process appreciated. CT angiography of the chest showed no pulmonary emboli and a dilated aortic root at the mid sinuses of Valsalva level measuring 4.1 cm, stable in comparison to prior study. There is also a 4 x 6 mm noncalcified nodule in the right lower lobe adjacent to the major fissure air which is stable in comparison to CT done 06/24/2018. There were no acute pulmonary parenchymal findings. CTA of the abdomen done 07/06/2019 showed the gallbladder incompletely distended, diffuse decrease in hepatic parenchymal density consistent with steatosis, and indentation and sharp angulation at the superior margin of the celiac artery shortly after its take off from the aorta consistent with a prominent median arcuate ligament and increased feces throughout the colon consistent with constipation. Cervical spine MRI done 07/06/2019 was unremarkable. Brain MRI without contrast was negative for acute finding. Brain MRA was unremarkable except for hypoplastic right A1 segment. EKG showed sinus rhythm at 62 beats per minute with some early repolarization and a normal axis. No changes since to 06/24/2018 ASSESSMENT: This is a 18-year-old male with history of unexplained syncopal episodes and new-onset peripheral neuropathy and motor weakness. He will be admitted to the progressive care unit (PCU) with routine labs and orders. PLAN: 1. Peripheral neuropathy: Dr. Wong is being consulted. So far imaging has been unrevealing as to the cause of his peripheral neuropathy. It has gotten better since his arrival to the emergency department. Will proceed with testing for heavy metals as well as vitamin deficiency. His thyroid studies were unremarkable. He is scheduled for a lumbar puncture tomorrow morning. 2. Syncope: Does not sound like seizures based on the history. Cardiac workup by Dr. Cruz has been unrevealing thus far with no activity on the patient's loop recorder and an echo that shows a stable aortic root dilatation. Will continue with monitoring on telemetry. 3. Deep venous thrombosis (DVT) prophylaxis: Thromboembolic deterrent stockings (TEDS) and sequentials as well as Lovenox. DISPOSITION: Inpatient as we expect greater than two midnights. [facility]
[2019-07-07 08:00] VITALS: BP 110/66
[2019-07-07] MEDS: PROPRANOLOL 20 MG TAB PO SCH ×2 (09:35→21:04)
[2019-07-07 12:00] VITALS: BP 97/48
[2019-07-07 13:19] LABS: HEMATOCRIT 46.1 % (42.0-52.0); HEMOGLOBIN 15.2 g/dl (13.5-17.5); PLATELET COUNT, AUTOMATED 288 10^3/uL (150-450); RED BLOOD COUNT 5.24 10^6/uL (4.30-6.10); WHITE BLOOD COUNT 8.7 10^3/uL (4.0-10.0)
[2019-07-07 13:45] LABS: BLOOD UREA NITROGEN 10 MG/DL (7-18); CARBON DIOXIDE LEVEL 24 MEQ/L (21-32); CHLORIDE LEVEL 109 MEQ/L (98-107); CREATININE FOR GFR 0.78 MG/DL (0.70-1.30); GLUCOSE, FASTING 103 MG/DL (70-100); POTASSIUM SERUM 4.4 MEQ/L (3.5-5.1); SODIUM LEVEL 140 MEQ/L (136-145)
[2019-07-07 15:50] LABS: APPEARANCE, CSF CLEAR (CLEAR); COLOR, CSF COLORLESS (COLORLESS); CSF TUBE# CELL CNT TUBE 1
[2019-07-07 15:53] LABS: APPEARANCE, CSF CLEAR (CLEAR); COLOR, CSF COLORLESS (COLORLESS); CSF TUBE# CELL CNT TUBE 4; CSF TUBE# GLU TUBE 2; CSF TUBE# TP TUBE 2; GLUCOSE CSF 54 MG/DL (40-75); TOTAL PROTEIN,CSF 44 MG/DL (15-45)
[2019-07-07 16:00] VITALS: BP 122/68
--- NOTE | 2019-07-07 19:35 | REP ---
Lumbar puncture under fluoroscopic guidance. The procedure was performed by DILSHAD Alvares, under the direct supervision of Dr. Raman. History: Procedure: The risks and benefits of the procedure were explained to the patient and informed consent was obtained both verbally and written. Directly prior to the start of the procedure, a formal timeout was completed in the procedure room. The patient was placed prone on the fluoroscopy table. The L 3-4 interspinous level was localized and confirmed fluoroscopically, and the skin was marked dorsally at this level. The skin was prepped and draped in the usual sterile fashion. 4 mL of 1% lidocaine 10 mg/ml was utilized for local anesthetic. An 22 gauge 3.5 inches spinal needle was advanced without significant difficulty into the cerebrospinal space at the L 3-4 interspinous level. Approximately 9 ml of clear freely flowing cerebrospinal fluid was retrieved and sent to the laboratory for analysis. The patient tolerated the procedure well and there were no immediate complications. 0.1 minutes of fluoroscopy time was utilized for this procedure. Reviewed by DILSHAD Turner 07/07/2019 05:45 P Electronically Signed by David Raman MD 07/07/2019 07:26 P
[2019-07-07 20:00] VITALS: BP 120/67
--- NOTE | 2019-07-07 21:59 | CR ---
DATE OF CONSULTATION: 07/07/2019 REFERRING PHYSICIAN: Britta Wellington MD REASON FOR CONSULTATION: Altered mental status with passing out spells. HISTORY OF PRESENT ILLNESS The patient is a 18-year-old man who was brought to [facility] by coworker after he was found lethargic and minimally responsive. 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 He has passed out 8-10 times. He is following with Dr. Cruz. He was found to have dilated thoracic aortic root. It is dilated to 4.5 cm. It is being monitored. He was being worked up for Marfan's syndrome, which was ruled out by his developmental training counselor in [place], [place]. They are still doing testing for Shelli-Danlos syndrome. The patient states that he was in a class yesterday about getting out of the [employer]. In the afternoon he started feeling dizzy and had double vision. Next thing he remembers that he woke up in emergency department. He states that he was unconscious for 30 minutes. He was incoherent and in and out of consciousness. When he woke up he could not feel his hands and feet and could not move them. He states that he had no feelings in his hands and legs up to his knees. There was no tingling sensation. His feeling and strength started coming back and he felt significantly better by 11:00 p.m. His numbness and weakness were gone by 11:00 p.m.. This morning his legs felt slightly weak. It was hard to stand up and walk around without assistance. His reflexes in the emergency department were noted to be normal. He was admitted for further workup. He denies any headaches, neck pain, back pains, seizures in past, dysphagia, dysarthria, urinary incontinence. DIAGNOSTIC STUDIES His MRI and MRA brain and MRI cervical spine were normal. He is urine toxicology screen, CBC and metabolic profile were normal. His spinal tap was normal with total protein 44 and WBCs 2. Glucose was 54. PAST MEDICAL HISTORY Syncopal episodes. 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 HOME MEDICATIONS: Propranolol 40 mg by mouth twice a day. ALLERGIES: None. VACCINATIONS: Up-to-date. FAMILY HISTORY There is no family history of neurological diseases, rheumatological diseases or connective tissue diseases. SOCIAL HISTORY The patient smokes tobacco, but has tried to quit. He denies illicit drugs. He drinks alcohol socially. REVIEW OF SYSTEMS All systems were reviewed and reported to be noncontributory except as mentioned in history of present illness. PHYSICAL EXAMINATION Temperature 98.4, pulse 79, respiratory 18, blood pressure 122/68, 99% saturation on room air. Heart: Regular rate and rhythm. Lungs: Clear to auscultation. Abdomen: Soft, nontender, nondistended. No pedal edema. No musculoskeletal abnormalities. No rash. No signs of meningeal irritation. The patient is awake, alert, oriented to place, person and time. Normal speech, comprehension and repetition. Extraocular muscles are intact. No facial weakness. Tongue and uvula are midline. 5/5 strength in all four extremities. Deep tendon flexes 2+ throughout. Normal sensation in hands and feet. There is no dysmetria. No signs of meningeal irritation. No tremor. No nystagmus. The patient was holding on to right hand and table while walking. There was no spasticity during his walking. ASSESSMENT 1. Syncopal episodes with recurrence 2. Dilated thoracic aortic root 4.5 cm per history and the patient is being worked up for Shelli-Danlos syndrome. 3. No evidence of Guillain Orlando syndrome on physical examination and spinal tap. 4. Gait difficulty of unclear etiology. PLAN 1. Check vitamin B12, vitamin B1, serum copper, SPEP etc.. 2. Physical therapy. 3. Follow with our office in 1-2 weeks after hospital discharge. JODEE
[2019-07-07 23:01] LABS: VITAMIN B12 LEVEL 457 PG/ML (247-911)
[2019-07-08] VITALS: BP_SYST 102; BP_SYST 121; BP_SYST 133; BP_DIAS 61; BP_DIAS 72
--- NOTE | 2019-07-08 | ECHO ---
DATE OF STUDY: 07/07/2019 REFERRING PHYSICIAN: Dr. Britta Wellington INDICATION: Syncope. HEIGHT: 193 cm WEIGHT: 81 kg 2D MEASUREMENTS: Aortic annulus: 2.4 cm Aortic root: 4.2 cm Proximal ascending aorta: 3.2 cm Left atrium: 3.5 cm Ventricular septum: 0.93 cm Posterior wall: 0.93 cm Left ventricle diastole: 5.1 cm Left ventricle systole: 3.5 cm Inferior vena cava: 2.7 cm with normal respiratory variation. DOPPLER MEASUREMENTS: No aortic regurgitation or stenosis. Aortic valve velocity: 100 cm/s LVOT velocity: 78.3 cm/s Trace mitral regurgitation. No mitral stenosis. Mitral E velocity: 63.8 cm/s Mitral A velocity: 34.3 cm/s Mitral deceleration time: 238 ms Very mild tricuspid regurgitation. Estimated right ventricle systolic pressure: 22-27 mmHg assuming a right atrial pressure of 5-10 mmHg. Very mild pulmonic regurgitation. Pulmonary acceleration time: 129 ms MITRAL ANNULAR TISSUE DOPPLER: E prime septal: 11.3 cm/s E prime lateral: 16.0 cm/s DESCRIPTION: Rhythm was sinus. Image quality was excellent. This was a 2D, M-mode, color flow Doppler and pulse wave Doppler examination and included mitral annular tissue Doppler. CONCLUSIONS: 1. Mild dilatation of the aortic root at the level of the sinuses of Valsalva (4.2 cm). Normal diameter of the proximal ascending aorta. Aortic arch appeared normal. No aortic dissection. 2. No pericardial effusion. 3. Structurally and functionally normal 3-cusp aortic valve. 4. Normal left ventricle internal dimensions and wall thickness. Normal regional LV wall motion and wall thickening. Normal LV systolic function. Normal LV diastolic function. 5. Otherwise normal appearing echocardiogram Doppler findings.
[2019-07-08 04:00] VITALS: BP 107/57
[2019-07-08 08:00] VITALS: BP 117/61
[2019-07-08] MEDS: PROPRANOLOL 20 MG TAB PO SCH ×2 (08:28→20:42)
--- NOTE | 2019-07-08 08:52 | IPNPDOC ---
Subjective Date Seen The patient was seen on 07/08/19. Subjective Chief Complaint/HPI seen and examined at bedside, no specific complaints today, feels tired/weak. General: Reports: Fatigue, Normal Appetite; Denies: Chills, Night Sweats, Malaise Constitutional: Denies: Chills, Fever, Night Sweats Eyes: Denies: Pain, Vision change ENT: Denies: Head Aches, Ear Pain, Dysphagia Skin: Denies: Rash, Lesions, Breakdown Pulmonary: Denies: Dyspnea, Cough Cardiovascular: Denies: Chest Pain, Palpitations, Orthopnea, Paroxysmal Noc. Dyspnea, Lt Headedness Gastrointestinal: Denies: Nausea, Vomiting, Abdominal Pain, Diarrhea, Constipation Genitourinary: Denies: Dysuria, Frequency, Incontinence, Retention Hematologic: Denies: Bruising, Bleeding Excessively Musculoskeletal: Denies: Neck Pain, Back Pain, Joint Pain, Muscle Pain, Spasms Neurological: Reports: Incoordination; Denies: Weakness, Numbness, Change in speech, Confusion Psych: Reports: Mood Normal; Denies: Depression, Memory Issues Objective Physical Examination General Exam: Positive: Alert, No Acute Distress Eye Exam: Positive: PERRLA, Conjunctiva & lids normal, EOMI; Negative: Sclera icteric ENT Exam: Positive: Atraumatic, Mucous membr. moist/pink, Pharynx Normal Neck Exam: Positive: Supple; Negative: JVD, thyromegaly Chest Exam: Positive: Clear to auscultation, Normal air movement Heart Exam: Positive: Rate Normal, Regular Rhythm, Normal S1, Normal S2; Negative: Murmurs, Rubs Telemetry: Positive: No significant arrhythmia Abdomen Exam: Positive: Normal bowel sounds, Soft; Negative: Tenderness, Hepatospenomegaly Male Exam: Positive: Normal Genital Exam Extremity Exam: Positive: Normal pulses; Negative: Clubbing, Cyanosis, Edema Skin Exam: Positive: Nl turgor and temperature; Negative: Rash, Breakdown Neuro Exam: Positive: Normal Gait, Normal Speech, Cranial Nerves 3-12 NL, Reflexes 2+ Psych Exam: Positive: Mental status NL, Mood NL, Oriented x 3 Assessment /Plan Assessment 1. recurrent syncopal episodes - seen by neurology Dr. Wong. - had extensive cardiology workup with Dr. Cruz, repeat ECHO results noted. - outpatient follow up with neurology. 2. gait difficulty - no evidence of GB syndrome on LP. - vitamin B12/B1, serum copper, SPEP. - PT/OT. - outpatient neurology follow up. Plan/VTE VTE Prophylaxis Ordered?: Yes VS, I&O, 24H, Fishbone Vital Signs/I&O Vital Signs Date Time Temp Pulse Resp B/P (MAP) Pulse Ox O2 Delivery O2 Flow Rate FiO2 07/08/19 08:28 59 117/61 07/08/19 04:00 98.3 18 99 Room Air 07/06/19 18:11 4.0 I&O- Last 24 Hours up to 6 AM 07/08/19 05:59 Intake Total 1900 ml Output Total 2050 ml Balance -150 ml Laboratory Data 24H LABS Laboratory Tests 2 07/07/19 13:00: Nucleated Red Blood Cells % (auto) 0.0, Anion Gap 7L, Calcium Level 9.0 07/07/19 15:05: CSF Appearance CLEAR, CSF Color COLORLESS, CSF WBC (Auto) 2, CSF RBC (Auto) < 2, CSF Glucose (Tube 1) TUBE 2, CSF Total Protein (Tube 1) TUBE 2, CSF Cell Count Tube # TUBE 4, CSF Polynuclear WBCs (%) , CSF Glucose 54, CSF Total Protein 44 07/07/19 15:33: CBC/BMP Laboratory Tests 07/07/19 13:00 Microbiology Microbiology 07/07/19 Gram Stain - Final, Resulted 07/07/19 CSF Culture, Resulted Pending 07/07/19 - Final, Complete ADIN MONTENEGRO MD Jul 08, 2019 08:52
[2019-07-08 16:00] VITALS: BP 123/71
[2019-07-08] MEDS: ACETAMINOPHEN TAB 650MG DOSE (2X325MG) PO PRN (18:22)
[2019-07-08 20:00] VITALS: BP 118/65
[2019-07-08] MEDS: GABAPENTIN 100 MG CAP PO SCH (20:42)
[2019-07-09 04:00] VITALS: BP 107/60
[2019-07-09 05:26] LABS: HEMATOCRIT 46.9 % (42.0-52.0); HEMOGLOBIN 15.8 g/dl (13.5-17.5); MEAN CORPUSCULAR HEMOGLOBIN 29.3 pg (27.0-33.0); MEAN CORPUSCULAR HGB CONC 33.7 g/dl (32.0-36.5); MEAN CORPUSCULAR VOLUME 86.9 fl (80.0-96.0); PLATELET COUNT, AUTOMATED 222 10^3/uL (150-450); WHITE BLOOD COUNT 8.3 10^3/uL (4.0-10.0)
[2019-07-09 09:00] VITALS: BP 110/69
[2019-07-09] MEDS: PROPRANOLOL 20 MG TAB PO SCH (09:00)
[2019-07-09] MEDS: GABAPENTIN 100 MG CAP PO SCH (09:35)
[2019-07-09] MEDS: ACETAMINOPHEN TAB 650MG DOSE (2X325MG) PO PRN (09:36)
[2019-07-09] MEDS ORDERED: GABA-1171 PO ×2 (11:33→14:15)
--- NOTE | 2019-07-09 14:04 | DS.PDOC ---
Discharge Summary General Date of Admission Jul 06, 2019 at 20:15 Date of Discharge 07/09/19 Discharge Summary PROCEDURES PERFORMED DURING STAY: [None]. ADMITTING DIAGNOSES: 1. syncope 2. gait difficulty DISCHARGE DIAGNOSES: 1. syncope 2. gait difficulty COMPLICATIONS/CHIEF COMPLAINT: Peripheral Neuropathy. HISTORY OF PRESENT ILLNESS: Please refer to for detailed HPI. HOSPITAL COURSE: Patient was admitted and treated for the following conditions: 1. recurrent syncopal episodes - seen by neurology Dr. Wong. - had extensive cardiology workup with Dr. Cruz, repeat ECHO results with no significant changes noted, dilated thoracic aortic root 4.5cm. - outpatient follow up with neurology. 2. gait difficulty - no evidence of GB syndrome on LP. - vitamin B12/B1, serum copper, SPEP follow up. - PT/OT worked with patient, symptoms seem to have improved. - outpatient neurology follow up. DISCHARGE MEDICATIONS: Please see below. ALLERGIES: Please see below. PHYSICAL EXAMINATION ON DISCHARGE: VITAL SIGNS: Please see below. GENERAL: AAO x 3, NAD. HEENT: NCAT, anicteric sclera, PERRLA/EOMI NECK: supple, no JVD, no thyromegaly CARDIOVASCULAR EXAMINATION: NS1S2, regular, no murmurs/rubs RESPIRATORY EXAMINATION: CTA b/l, no wheezing, rales, rhonchi. ABDOMINAL EXAMINATION: NT/ND, positive bowel sounds, no masses EXTREMITIES: no cyanosis, clubbing, edema SKIN: warm, no rashes, NEUROLOGICAL EXAMINATION: AAO x 3, no motor/sensory deficits, PSYCHIATRIC EXAMINATION: calm, cooperative, normal affect. LABORATORY DATA: Please see below. IMAGING: none PROGNOSIS: good ACTIVITY: [As tolerated]. DIET: low fat/low cholesterol DISPOSITION: 01 Home, Self-Care. DISCHARGE INSTRUCTIONS: 1. Please follow up with neurology Dr. Wong. ITEMS TO FOLLOWUP ON ON OUTPATIENT: 1. SPEP DISCHARGE CONDITION: [Stable]. TIME SPENT ON DISCHARGE: Greater than [30] minutes. Vital Signs/I&Os Vital Signs Date Time Temp Pulse Resp B/P (MAP) Pulse Ox O2 Delivery O2 Flow Rate FiO2 07/09/19 09:00 98.1 91 18 110/69 (83) 98 Room Air 07/06/19 18:11 4.0 I&O- Last 24 Hours up to 6 AM0 07/09/19 06:00 Intake Total 1140 ml Output Total 1050 ml Balance 90 ml Laboratory Data Labs 24H Laboratory Tests 2 07/09/19 04:46: Nucleated Red Blood Cells % (auto) 0.0 CBC/BMP Laboratory Tests 07/09/19 04:46 Microbiology Microbiology 07/07/19 Gram Stain - Final, Complete 07/07/19 CSF Culture - Final, Complete 07/07/19 - Final, Complete Discharge Medications Scheduled Gabapentin (Gabapentin) 100 Mg Capsule, 100 MG PO BID Propranolol HCl (Propranolol HCl) 40 Mg Tablet, 40 MG PO BID, (Reported) Allergies Coded Allergies: No Known Drug Allergies (Verified Allergy, Unknown, 01/07/19) ADIN MONTENEGRO MD Jul 09, 2019 14:04
[2019-07-13 00:09] LABS: IMMUNOGLOBULIN G CSF 3.3 mg/dL (0.0-8.6)
== END 2019-07-09 13:30 | disposition home or self-care (01) | DRG 312 ==
LOC: M ED 18:05 → M ED INP 20:15 → ENRESERV 07-07 05:45 → M ICU 07-07 07:02
PROVIDERS: ADMIT General Practice; ATTEND General Practice
PROC: 009U3ZX Drainage of Spinal Canal, Percutaneous Approach, Diagnostic (ICD-10-PCS; principal; 2019-07-07)
DX: R55 Syncope and collapse (principal); R41.82 Altered mental status, unspecified; F17.200 Nicotine dependence, unspecified, uncomplicated; F17.290 Nicotine dependence, other tobacco product, uncomplicated; G62.9 Polyneuropathy, unspecified; I77.810 Thoracic aortic ectasia; R26.2 Difficulty in walking, not elsewhere classified

== ENCOUNTER 2019-08-06 00:57 | Emergency (ER) | payer OTHER ==
[~2019-08-06] VITALS: Ht 193 cm; Wt 79.5 kg
[~2019-08-06 00:57] MED LIST changes: +GABA-1171 PO; +PROP40TA62 PO
[2019-08-06 01:29] LABS: HEMATOCRIT 47.2 % (42.0-52.0); HEMOGLOBIN 15.9 g/dl (13.5-17.5); MEAN CORPUSCULAR HEMOGLOBIN 29.3 pg (27.0-33.0); MEAN CORPUSCULAR HGB CONC 33.7 g/dl (32.0-36.5); MEAN CORPUSCULAR VOLUME 87.1 fl (80.0-96.0); PLATELET COUNT, AUTOMATED 299 10^3/uL (150-450); RED BLOOD COUNT 5.42 10^6/uL (4.30-6.10); WHITE BLOOD COUNT 10.6 10^3/uL (4.0-10.0)
[2019-08-06 01:59] LABS: AMPHETAMINES LEVEL URINE NEGATIVE (NEGATIVE); BARBITURATES URINE NEGATIVE (NEGATIVE); BENZODIAZEPINES URINE NEGATIVE (NEGATIVE); CANNABINOIDS URINE NEGATIVE (NEGATIVE); COCAINE METABOLITE URINE NEGATIVE (NEGATIVE); METHADONE URINE NEGATIVE (NEGATIVE); OPIATES URINE NEGATIVE (NEGATIVE); PHENCYCLIDINE URINE NEGATIVE (NEGATIVE)
[2019-08-06 02:07] LABS: ACETAMINOPHEN LEVEL < 2.0 UG/ML (10.0-30.0); ALBUMIN 4.2 GM/DL (3.2-5.2); ALT/SGPT 26 U/L (12-78); BILIRUBIN,DIRECT 0.3 MG/DL (0.0-0.2); BILIRUBIN,TOTAL 1.1 MG/DL (0.2-1.0); BLOOD UREA NITROGEN 8 MG/DL (7-18); CALCIUM LEVEL 8.6 MG/DL (8.5-10.1); CARBON DIOXIDE LEVEL 25 MEQ/L (21-32); CHLORIDE LEVEL 109 MEQ/L (98-107); CREATININE FOR GFR 0.82 MG/DL (0.70-1.30); ETHYL ALCOHOL (ETHANOL) 0.244 % (0.000-0.010); GLUCOSE, FASTING 108 MG/DL (70-100); POTASSIUM SERUM 3.6 MEQ/L (3.5-5.1); SALICYLATE LEVEL < 1.7 MG/DL (5.0-30.0); SODIUM LEVEL 140 MEQ/L (136-145); THYROID STIMULATING HORMONE 0.613 uIU/ML (0.463-3.98); TOTAL PROTEIN 7.6 GM/DL (6.4-8.2)
[2019-08-06] MEDS ORDERED: D5W/0.9% SODIUM CHLORIDE 1,000 ML IV ONE (02:15)
[2019-08-06 09:13] VITALS: BP 146/67
[2019-08-06] MEDS ORDERED: PROPRANOLOL 20 MG TAB PO ONE (09:30)
[2019-08-06 10:08] VITALS: BP 146/67
== END 2019-08-06 10:11 | disposition home or self-care (01) ==
LOC: M ED 00:57
DX: F10.129 Alcohol abuse with intoxication, unspecified (principal); F91.9 Conduct disorder, unspecified; F17.210 Nicotine dependence, cigarettes, uncomplicated
CPT/HCPCS: 80048; 80076; 80307; 84443; 85027; 96360; 99284; G0480